=== PATIENT | female | born 1980 | race American Indian/Alaskan Native ===

== ENCOUNTER 2020-09-22 21:18 | Emergency (ER) | payer SELFPAY ==
[2020-09-22 21:43] VITALS: BP 141/93
[2020-09-22 23:49] LABS: Basophils % (Auto) 0.5 % (0.0-1.8); Eosinophils % (Auto) 0.1 % (0.0-4.3); Hematocrit 39.5 % (30.3-42.9); Hemoglobin 13.1 gm/dl (10.1-14.3); Lymphocytes # (Auto) 1.4 K/mm3 (1.2-5.4); Lymphocytes % (Auto) 23.5 % (13.4-35.0); Mean Corpuscular HGB Conc 33 % (30-34); Mean Corpuscular Volume 93 fl (79-97); Monocytes # (Auto) 0.7 K/mm3 (0.0-0.8); Monocytes % (Auto) 11.6 % (0.0-7.3); Platelet Count 209 K/mm3 (140-440); Red Blood Count 4.23 M/mm3 (3.65-5.03); Red Cell Distribution Width 13.9 % (13.2-15.2)
[2020-09-22 23:59] LABS: Alanine Aminotransferase 67 units/L (7-56); Albumin 4.3 g/dL (3.9-5); BUN/Creatinine Ratio 15; Blood Urea Nitrogen 18 mg/dL (7-17); Calcium 9.5 mg/dL (8.4-10.2); Hemolysis Index 1
[2020-09-23 05:42] LABS: HCG Qualitative,Urine Negative (Negative)
[2020-09-23 05:47] LABS: Bilirubin,Urine NEG (Negative); Blood,Urine LG (Negative); Color,Urine Yellow (Yellow); Mucus,Urine FEW /HPF; RBC,Urine > 182.0 /HPF (0.0-6.0); Urobilinogen,Urine < 2.0 mg/dL (<2.0)
[2020-09-23] MEDS ORDERED: MORPHINE 4 MG/1 ML INJ IM ONE (10:12)
[2020-09-23] MEDS ORDERED: ONDANSETRON 4 MG/2 ML INJ IM ONE (10:12)
--- NOTE | 2020-09-23 10:15 | Emergency Department Report ---
ED Abdominal Pain HPI - General Chief Complaint: Vaginal Bleeding Stated Complaint: PELVIC PAIN/BLEEDING Time Seen by Provider: 09/23/20 10:07 Source: patient Mode of arrival: Ambulatory Limitations: No Limitations - History of Present Illness Initial Comments: Patient is 39 years old female with history of hypertension diabetes. Patient presented to the ER complaining of vaginal bleeding or abdominal pain. Patient stated the symptoms started last year however in the last 2 to 3 days get very tense. Patient stated that she is unable to keep anything down. Patient denied any fever or chills. No diarrhea. Patient also denied any recent injury. MD Complaint: abdominal pain -: days(s) Location: diffuse Radiation: none Quality: stabbing - Related Data Previous Rx's Medication Instructions Recorded Last Taken Type Azithromycin [Zithromax Z-JESUS] 250 mg PO DAILY 1 Days tab 09/23/20 Unknown Rx Ondansetron [Zofran Odt] 4 mg PO Q8HR PRN #14 tab.rapdis 09/23/20 Unknown Rx traMADoL [Ultram 50 MG tab] 50 mg PO Q4HR PRN #14 tablet 09/23/20 Unknown Rx Allergies Allergy/AdvReac Type Severity Reaction Status Date / Time ibuprofen [From Advil] Allergy Swelling Verified 09/22/20 21:42 ED Review of Systems ROS: Stated complaint: PELVIC PAIN/BLEEDING Other details as noted in HPI Comment: All other systems reviewed and negative Constitutional: denies: chills, fever Respiratory: denies: cough, shortness of breath, SOB with exertion Cardiovascular: denies: chest pain, palpitations Gastrointestinal: abdominal pain, nausea. denies: vomiting, diarrhea, constipation, hematemesis, melena, hematochezia Musculoskeletal: denies: back pain Neurological: denies: headache, weakness, numbness, paresthesias, confusion, abn ormal gait ED Past Medical Hx - Past Medical History Hx Hypertension: Yes Hx Diabetes: Yes - Surgical History Past Surgical History?: Yes Hx Cholecystectomy: Yes - Social History Smoking Status: Never Smoker Substance Use Type: None - Medications Home Medications: Home Medications Medication Instructions Recorded Confirmed Last Taken Type Azithromycin [Zithromax Z-JESUS] 250 mg PO DAILY 1 Days tab 09/23/20 Unknown Rx Ondansetron [Zofran Odt] 4 mg PO Q8HR PRN #14 tab.rapdis 09/23/20 Unknown Rx traMADoL [Ultram 50 MG tab] 50 mg PO Q4HR PRN #14 tablet 09/23/20 Unknown Rx ED Physical Exam - General Limitations: No Limitations General appearance: alert, in no apparent distress - Head Head exam: Present: atraumatic, normocephalic, normal inspection - Eye Eye exam: Present: normal appearance, PERRL - ENT ENT exam: Present: normal exam, normal orophraynx, mucous membranes moist - Neck Neck exam: Present: normal inspection, full ROM. Absent: tenderness, meningismus - Respiratory Respiratory exam: Present: normal lung sounds bilaterally - Cardiovascular Cardiovascular Exam: Present: regular rate, normal rhythm, normal heart sounds - GI/Abdominal GI/Abdominal exam: Present: soft, normal bowel sounds. Absent: distended, tenderness, guarding, rebound, rigid, organomegaly, mass, bruit, pulsatile mass, hernia - Extremities Exam Extremities exam: Present: normal inspection, full ROM, normal capillary refill. Absent: tenderness, pedal edema, joint swelling, calf tenderness - Back Exam Back exam: Present: normal inspection, full ROM. Absent: CVA tenderness (R), CVA tenderness (L) - Neurological Exam Neurological exam: Present: alert, oriented X3, CN II-XII intact - Psychiatric Psychiatric exam: Present: normal mood - Skin Skin exam: Present: warm, intact, normal color ED Course Vital Signs 09/22/20 09/23/20 09/23/20 21:39 10:20 10:29 Temperature 98.9 F Pulse Rate 103 H Respiratory 18 18 18 Rate Blood Pressure 141/93 O2 Sat by Pulse 96 100 Oximetry ED Medical Decision Making - Lab Data Result diagrams: 09/22/20 22:34 09/22/20 22:34 - Radiology Data Radiology results: report reviewed - Medical Decision Making Patient is 39 years old female with history of hypertension diabetes. Patient presented to the ER complaining of vaginal bleeding or abdominal pain. Patient stated the symptoms started last year however in the last 2 to 3 days get very tense. Patient stated that she is unable to keep anything down. Patient denied any fever or chills. No diarrhea. Patient also denied any recent injury. Labs reviewed and is unremarkable. CT abdomen and pelvis showed bilateral lower lobe infiltrates on further questioning patient admitted that for the last 2 to 3 days she has been having some cough. Possibility of COVID-19 discussed with the patient. I started the patient on Zithromax. Patient vital signs stable with oxygen saturation of 100%. Patient advised to follow-up with her primary care physician in the next 2 to 3 days and to return to the ER if she develop any symptoms. Patient also advised to self quarantine. Critical care attestation.: If time is entered above; I have spent that time in minutes in the direct care of this critically ill patient, excluding procedure time. ED Disposition Clinical Impression: Acute abdominal pain, Pneumonia due to COVID-19 virus Disposition: DC- TO HOME OR SELFCARE Is pt being admited?: No Condition: Stable Instructions: COVID-19 Frequently Asked Questions, Abdominal Pain, Adult, [id number], Bacterial Pneumonia (ED) Prescriptions: traMADoL [Ultram 50 MG tab] 50 mg PO Q4HR PRN #14 tablet PRN Reason: Pain Azithromycin [Zithromax Z-JESUS] 250 mg PO DAILY 1 Days tab Ondansetron [Zofran Odt] 4 mg PO Q8HR PRN #14 tab.rapdis PRN Reason: Nausea And Vomiting Referrals: [facility] [Provider Group] - 3-5 Days
--- NOTE | 2020-09-23 11:10 | Cat Scan Report ---
CT ABDOMEN AND PELVIS WITHOUT CONTRAST HISTORY: ABDOMINAL PAIN COMPARISON: None. TECHNIQUE: Axial CT images were obtained through the abdomen and pelvis without IV contrast. Sagittal and coronal reformatted images. All CT scans at this location are performed using CT dose reduction for ALARA by means of automated exposure control. FINDINGS: CT ABDOMEN: Lung Bases: There are patchy groundglass airspace opacities in the lower lung zones concerning for at ypical infection. No pleural fluid or pneumothorax. Liver: No significant abnormality. Biliary: Gallbladder is surgically absent. Spleen: No significant abnormality. Unenlarged. Pancreas: No significant abnormality. Adrenals: No significant abnormality. Kidneys: No significant abnormality. Lymphatics: No lymphadenopathy. Vasculature: No significant abnormality. Bowel/Peritoneum: There is mild diverticulosis of the colon. No evidence for obstruction or focal inf lammation. No free fluid or free air. Normal appendix. CT PELVIS: : No significant abnormality. Osseous Structures: No significant abnormality. Additional Findings: None IMPRESSION: Patchy lung infiltrates are identified at both lung bases concerning for atypical infection or viral infection. Diverticulosis of the colon. No acute process is appreciated in the abdomen or pelvis. Signer Name: Torrey Ventura Jr, MD Signed: 09/23/2020 11:06 AM Workstation Name: [id number]
== END 2020-09-23 12:09 | disposition home or self-care (01) ==
LOC: ED 21:18
DX: R10.84 Generalized abdominal pain (principal); J12.82 Pneumonia due to coronavirus disease 2019; I10 Essential (primary) hypertension; E11.9 Type 2 diabetes mellitus without complications; Z90.49 Acquired absence of other specified parts of digestive tract; Z79.899 Other long term (current) drug therapy; Z79.1 Long term (current) use of non-steroidal anti-inflammatories (NSAID); Z88.8 Allergy status to other drugs, medicaments and biological substances
CPT/HCPCS: 36415; 74176; 80053; 81001; 81025; 85025; 96372; 99284; J2270; J2405